=== PATIENT | male | born 1970 | race Hispanic/Latino ===

== ENCOUNTER 2023-02-10 01:33 | Emergency (ER) | payer BC, OTHER ==
[~2023-02-10] VITALS: Ht 180.3 cm; Wt 81.6 kg
[2023-02-10] MEDS ORDERED: TETANUS/DIPHTHERIA TOXOID [ADULT] 0.5 ML VIAL IM ONE (02:00)
[2023-02-10] MEDS ORDERED: CEFTRIAXONE 2GM VIAL IVPB ONE (03:30)
[2023-02-10] MEDS ORDERED: LIDOCAINE HCL 1% 20 ML VIAL ONE (03:34)
[2023-02-10 07:06] VITALS: BP 127/79
== END 2023-02-10 07:19 | disposition home or self-care (01) ==
LOC: EDH 01:33
DX: S71.111A Laceration without foreign body, right thigh, initial encounter (principal); S51.811A Laceration without foreign body of right forearm, initial encounter; F10.10 Alcohol abuse, uncomplicated; I95.9 Hypotension, unspecified; X58.XXXA Exposure to other specified factors, initial encounter; Y93.89 Activity, other specified; Y92.89 Other specified places as the place of occurrence of the external cause; Y99.8 Other external cause status
CPT/HCPCS: 99284; 96365; 71045; 90714; 73090; 72170; 90471; 12002; J0696

== ENCOUNTER 2023-04-14 13:20 | Emergency (ER) | payer OTHER ==
[~2023-04-14] VITALS: Ht 180.3 cm; Wt 88.5 kg
[2023-04-14 17:15] VITALS: BP 122/84; PULSE 84; RESP 18; O2SAT 97
== END 2023-04-14 17:29 | disposition home or self-care (01) ==
LOC: EDH 13:20
DX: S80.01XA Contusion of right knee, initial encounter (principal); S60.221A Contusion of right hand, initial encounter; W18.39XA Other fall on same level, initial encounter; Y93.89 Activity, other specified; Y92.89 Other specified places as the place of occurrence of the external cause; Y99.8 Other external cause status
CPT/HCPCS: 29505; 73130; 73562